=== PATIENT | female | born 1990 | race Caucasian/White ===

== ENCOUNTER 2016-10-25 10:41 | Inpatient (IN) | payer MEDICAID ==
[~2016-10-25] VITALS: Ht 165.1 cm; Wt 129.5 kg
[~2016-10-25 10:41] MED LIST: BUSPAR5 MG PO; CEFTIN500 MG PO; EFFEXOR 75M75 MG/TAB PO; FLEXERIL 1010 MG/TAB PO; FLEXERIL10 MG PO; IBREN600 MG PO; KLONOPIN 1MG1 MG PO; MIRENA52 MG IU; MOTRIN 400400 MG/TAB PO; MULTIPLE VITAMI1 CAP PO; NEXIUM 20MG CAP20 MG PO; NO HOME MEDICATIONS; NORCO 325 MG-51 TAB PO; PHENERGAN 25 TA25 MG PO; PREDNISONE 5MG5 MG PO; PREDNISONE20 MG PO; PRISTIQ50 MG PO; PROAIR HFA0.09 MG/AC; PROVENTIL0.09 MG/A1 IH; ROSERUM; SEROQUEL50 MG PO; TUSS PO; VIIBRYD40 MG PO; XANAX1 MG PO; ZITHROMAX 250M250 MG; ZITHROMAX Z PA250 MG PO; ZYRTEC-D 5 MG-11 TER PO
[2016-10-28] MEDS ORDERED: PRENATAL1 TA7 PO (17:26)
[2016-10-28] MEDS ORDERED: TUMS500 MG (17:26)
[2016-11-26] VITALS (34 sets, daily range): BP systolic 94–160; BP diastolic 16–103; PULSE 77–127; TEMP 97.9–98.9
[2016-11-26] MEDS ORDERED: TYLENOL PM EXTR1 TA1 PO (07:52)
[2016-11-26 08:07] LABS: BASO % 0.3 % (0.0-2.0); EOS # 0.1 (0.0-0.7); EOS % 0.4 % (0-4.0); GRAN # 8.1 (1.4-6.5); GRAN % 71.7 % (42.2-75.2); LYMPH # 2.6 (1.2-3.4); LYMPH % 22.5 % (20.0-51.0); MEAN CELL VOLUME 86 fl (80.0-100.0); MEAN CORPUSCULAR HGB CONC 32 g/dl (33.0-37.0); MEAN PLATELET VOLUME 9.4 fl (7.4-10.4); MONO # 0.5 (0.1-0.6); MONO % 4.7 % (1.7-9.3); PLATELET COUNT 281 K/mm3 (130-400); RED BLOOD COUNT 3.79 M/mm3 (4.10-5.30); REDCELL DISTRIBUTION WIDTH-CV 16.5 % (11.5-14.5); WHITE BLOOD COUNT 11.3 K/mm3 (4.8-10.8)
[2016-11-26 08:11] LABS: HEMATOCRIT 32.7 % (37.0-47.0); HEMOGLOBIN 10.6 g/dl (12.5-16.0); MEAN CORPUSCULAR HEMOGLOBIN 28 pg (27.0-31.0)
[2016-11-26] MEDS ORDERED: PERCOCET 325 MG1 TA2 PO (10:41)
[2016-11-26] MEDS ORDERED: MOTRIN 800800 MG/TAB PO (10:41)
[2016-11-27 03:30] VITALS: BP 130/89; PULSE 96; TEMP 97.8
[2016-11-27 07:15] VITALS: BP 107/52; PULSE 95; TEMP 98.2
[2016-11-27 15:26] VITALS: BP 138/82; PULSE 102; TEMP 98
[2016-11-27 20:30] VITALS: BP 135/75; PULSE 99; TEMP 98.4
[2016-11-28 08:07] VITALS: BP 131/69; PULSE 102; TEMP 97.5
[2016-11-28] MEDS ORDERED: PERCOCET 325 MG1 TA2 PO (08:33)
[2016-11-28] MEDS ORDERED: IBU800 M1 PO (08:33)
[2016-11-28 16:20] VITALS: BP 130/67; PULSE 95; TEMP 98.3
[2017-05-01] MEDS ORDERED: OMEGA-3 FISH1000 MG PO (09:20)
[2017-06-25] MEDS ORDERED: THE MEDICINE S200 M2 PO (13:52)
== END 2016-11-28 19:50 | disposition home or self-care (01) | DRG 775 ==
LOC: LDRO → LDR 11-26 06:25 → OB 11-26 07:13 → LDR 11-26 07:13 → OB 11-26 18:00 → EDSTATUS 11-28 06:23 → LDRO 11-28 10:40 → OB 11-28 19:50
PROVIDERS: Obstetrics & Gynecology
PROC: 10E0XZZ Delivery of Products of Conception, External Approach (ICD-10-PCS; principal; 2016-11-26)
PROC: 3E033VJ Introduction of Other Hormone into Peripheral Vein, Percutaneous Approach (ICD-10-PCS; 2016-11-26)
DX: O75.89 Other specified complications of labor and delivery (principal); O99.334 Smoking (tobacco) complicating childbirth; F17.210 Nicotine dependence, cigarettes, uncomplicated; Z3A.39 39 weeks gestation of pregnancy; Z37.0 Single live birth
CPT/HCPCS: J2590; J2795; J7120

== ENCOUNTER 2016-10-28 16:08 | Outpatient (CLI) | payer MEDICAID ==
[~2016-10-28] VITALS: Ht 165.1 cm; Wt 128.6 kg
[2016-10-28 16:24] VITALS: BP 134/63; PULSE 114; TEMP 98.1
[2016-10-28 17:00] VITALS: BP 114/60; PULSE 94
[2016-10-28] MEDS ORDERED: PRENATAL1 TA7 PO (17:26)
[2016-10-28] MEDS ORDERED: TUMS500 MG (17:26)
[2016-10-28 17:30] VITALS: BP 92/50; PULSE 104
[2016-10-28 18:00] VITALS: BP 92/50; PULSE 104
[2016-10-28 18:50] VITALS: BP 109/59; PULSE 93
[2017-05-01] MEDS ORDERED: OMEGA-3 FISH1000 MG PO (09:20)
[2017-06-25] MEDS ORDERED: THE MEDICINE S200 M2 PO (13:52)
== END 2016-10-28 19:17 | disposition home or self-care (01) ==
LOC: LDRO 16:08
DX: O26.893 Other specified pregnancy related conditions, third trimester (principal); R19.7 Diarrhea, unspecified; O21.0 Mild hyperemesis gravidarum; Z3A.35 35 weeks gestation of pregnancy; Z87.891 Personal history of nicotine dependence
CPT/HCPCS: J2405; J7120

== ENCOUNTER → 2016-12-06 | Outpatient (CLI) | payer MEDICAID ==
[~2016-12-06] MED LIST changes: +IBU800 M1 PO; +MOTRIN 800800 MG/TAB PO; +OMEGA-3 FISH1000 MG PO; +PERCOCET 325 MG1 TA2 PO; +PRENATAL1 TA7 PO; +THE MEDICINE S200 M2 PO; +TUMS500 MG; +TYLENOL PM EXTR1 TA1 PO
== END ==
LOC: LAC 13:24
DX: Z39.1 Encounter for care and examination of lactating mother (principal); Z71.89 Other specified counseling

== ENCOUNTER → 2016-12-13 | Outpatient (CLI) | payer MEDICAID | LOC: LAC 13:28 | DX: Z39.1 Encounter for care and examination of lactating mother (principal); Z71.89 Other specified counseling ==

== ENCOUNTER → 2017-05-01 | Outpatient (CLI) | payer MEDICAID ==
[~2017-05-01] VITALS: Ht 162.6 cm; Wt 125.2 kg
[2017-05-01 09:21] VITALS: BP 123/56; PULSE 96
== END ==
LOC: LIGHT 03-20 07:54
DX: M54.5 Low back pain (principal); F33.9 Major depressive disorder, recurrent, unspecified; K21.9 Gastro-esophageal reflux disease without esophagitis; E66.01 Morbid (severe) obesity due to excess calories; Z68.42 Body mass index [BMI] 45.0-49.9, adult; Z71.3 Dietary counseling and surveillance

== ENCOUNTER → 2017-05-21 | Outpatient (CLI) | payer MEDICAID ==
[~2017-05-21] VITALS: Ht 162.6 cm; Wt 128.8 kg
[2017-05-21 14:42] VITALS: BP 100/72; PULSE 80
== END ==
LOC: LIGHT 05-13 15:04
DX: M54.5 Low back pain (principal); F33.9 Major depressive disorder, recurrent, unspecified; K21.9 Gastro-esophageal reflux disease without esophagitis; E66.01 Morbid (severe) obesity due to excess calories; Z68.42 Body mass index [BMI] 45.0-49.9, adult; Z71.3 Dietary counseling and surveillance

== ENCOUNTER 2017-05-28 14:00 | Outpatient (RCR) | payer MEDICAID ==
[~2017-05-28 14:00] MED LIST changes: -THE MEDICINE S200 M2 PO
[2017-06-25] MEDS ORDERED: THE MEDICINE S200 M2 PO (13:52)
== END 2017-06-21 16:42 ==
LOC: WSPT 14:00
DX: M54.42 Lumbago with sciatica, left side (principal)

== ENCOUNTER → 2017-06-25 | Outpatient (CLI) | payer MEDICAID ==
[~2017-06-25] VITALS: Ht 162.6 cm; Wt 127.7 kg
[~2017-06-25] MED LIST changes: +GLUCOPHAGE500 MG/TAB PO; +PERCOCET 325 MG1 TAB PO; +THE MEDICINE S200 M2 PO
[2017-06-25 13:52] VITALS: BP 120/80; PULSE 88
== END ==
LOC: LIGHT 06-04 12:44
DX: M54.5 Low back pain (principal); F33.9 Major depressive disorder, recurrent, unspecified; K21.9 Gastro-esophageal reflux disease without esophagitis; E66.01 Morbid (severe) obesity due to excess calories; Z68.42 Body mass index [BMI] 45.0-49.9, adult; Z71.3 Dietary counseling and surveillance

== ENCOUNTER → 2017-07-16 | Outpatient (CLI) | payer MEDICAID ==
[~2017-07-16] VITALS: Ht 162.6 cm; Wt 130.0 kg
[2017-07-16 13:32] VITALS: BP 116/74; PULSE 64
== END ==
LOC: LIGHT 07-09 09:27
DX: M54.5 Low back pain (principal); F33.9 Major depressive disorder, recurrent, unspecified; K21.9 Gastro-esophageal reflux disease without esophagitis; E66.01 Morbid (severe) obesity due to excess calories; Z68.42 Body mass index [BMI] 45.0-49.9, adult; Z71.3 Dietary counseling and surveillance

== ENCOUNTER → 2017-08-20 | Outpatient (CLI) | payer MEDICAID ==
[~2017-08-20] VITALS: Ht 162.6 cm; Wt 128.8 kg
[~2017-08-20] MED LIST changes: +ADIPEX-P37.5 MG PO
[2017-08-20 13:19] VITALS: BP 112/80; PULSE 80
== END ==
LOC: LIGHT 10:10
DX: M54.5 Low back pain (principal); F33.9 Major depressive disorder, recurrent, unspecified; K21.9 Gastro-esophageal reflux disease without esophagitis; E66.01 Morbid (severe) obesity due to excess calories; Z68.42 Body mass index [BMI] 45.0-49.9, adult; Z71.3 Dietary counseling and surveillance

== ENCOUNTER → 2017-09-24 | Outpatient (CLI) | payer MEDICAID ==
[~2017-09-24] VITALS: Ht 162.6 cm; Wt 126.3 kg
[~2017-09-24] MED LIST changes: -ADIPEX-P37.5 MG PO; +PHENTERMINE15 MG PO
[2017-09-24 13:20] VITALS: BP 100/72; PULSE 80
== END ==
LOC: LIGHT 10:24
DX: M54.5 Low back pain (principal); F33.9 Major depressive disorder, recurrent, unspecified; K21.9 Gastro-esophageal reflux disease without esophagitis; E66.01 Morbid (severe) obesity due to excess calories; Z68.42 Body mass index [BMI] 45.0-49.9, adult; Z71.3 Dietary counseling and surveillance

== ENCOUNTER → 2017-10-22 | Outpatient (CLI) | payer MEDICAID ==
[~2017-10-22] VITALS: Ht 162.6 cm; Wt 124.7 kg
[2017-10-22 15:05] VITALS: BP 120/78; PULSE 96
== END ==
LOC: LIGHT 14:36
DX: M54.5 Low back pain (principal); F33.9 Major depressive disorder, recurrent, unspecified; K21.9 Gastro-esophageal reflux disease without esophagitis; E66.01 Morbid (severe) obesity due to excess calories; Z68.42 Body mass index [BMI] 45.0-49.9, adult; Z71.3 Dietary counseling and surveillance

== ENCOUNTER → 2017-11-04 | Outpatient (CLI) | payer MEDICAID ==
[~2017-11-04] VITALS: Ht 162.6 cm; Wt 124.7 kg
== END ==
LOC: LIGHT 09:41
DX: M54.5 Low back pain (principal); F33.9 Major depressive disorder, recurrent, unspecified; K21.9 Gastro-esophageal reflux disease without esophagitis; E66.01 Morbid (severe) obesity due to excess calories; Z68.42 Body mass index [BMI] 45.0-49.9, adult; Z71.3 Dietary counseling and surveillance
CPT/HCPCS: G0463

== ENCOUNTER → 2017-11-19 | Outpatient (CLI) | payer MEDICAID ==
[~2017-11-19] VITALS: Ht 162.6 cm; Wt 123.4 kg
[2017-11-19 16:23] VITALS: BP 110/80; PULSE 96
== END ==
LOC: LIGHT 10:22
DX: M54.5 Low back pain (principal); F33.9 Major depressive disorder, recurrent, unspecified; K21.9 Gastro-esophageal reflux disease without esophagitis; E66.01 Morbid (severe) obesity due to excess calories; Z68.42 Body mass index [BMI] 45.0-49.9, adult; Z71.3 Dietary counseling and surveillance
CPT/HCPCS: G0463

== ENCOUNTER → 2017-12-17 | Outpatient (CLI) | payer MEDICAID ==
[~2017-12-17] VITALS: Ht 162.6 cm; Wt 124.7 kg
[~2017-12-17] MED LIST changes: +ADIPEX-P37.5 MG PO; -PHENTERMINE15 MG PO
[2017-12-17 14:34] VITALS: BP 106/80; PULSE 64
== END ==
LOC: LIGHT 13:53
DX: M54.5 Low back pain (principal); F33.9 Major depressive disorder, recurrent, unspecified; K21.9 Gastro-esophageal reflux disease without esophagitis; E66.01 Morbid (severe) obesity due to excess calories; Z68.42 Body mass index [BMI] 45.0-49.9, adult; Z71.3 Dietary counseling and surveillance
CPT/HCPCS: G0463

== ENCOUNTER → 2018-01-14 | Outpatient (CLI) | payer MEDICAID ==
[~2018-01-14] VITALS: Ht 162.6 cm; Wt 123.2 kg
[~2018-01-14] MED LIST changes: +VITAMIN D 400400 IU PO
[2018-01-14 13:54] VITALS: BP 120/50; PULSE 80
== END ==
LOC: LIGHT 09:38
DX: M54.5 Low back pain (principal); F33.9 Major depressive disorder, recurrent, unspecified; K21.9 Gastro-esophageal reflux disease without esophagitis; E66.01 Morbid (severe) obesity due to excess calories; Z68.42 Body mass index [BMI] 45.0-49.9, adult; Z71.3 Dietary counseling and surveillance

== ENCOUNTER → 2018-02-11 | Outpatient (CLI) | payer MEDICAID ==
[~2018-02-11] VITALS: Ht 162.6 cm; Wt 121.3 kg
[2018-02-11 16:54] VITALS: BP 110/60; PULSE 60
== END ==
LOC: LIGHT 09:03
DX: M54.5 Low back pain (principal); F33.9 Major depressive disorder, recurrent, unspecified; K21.9 Gastro-esophageal reflux disease without esophagitis; E66.01 Morbid (severe) obesity due to excess calories; Z68.42 Body mass index [BMI] 45.0-49.9, adult; Z71.3 Dietary counseling and surveillance
CPT/HCPCS: G0463

== ENCOUNTER → 2018-03-18 | Outpatient (CLI) | payer MEDICAID ==
[~2018-03-18] VITALS: Ht 162.6 cm; Wt 122.2 kg
[2018-03-18 15:23] VITALS: BP 140/96; PULSE 80
== END ==
LOC: LIGHT 14:49
DX: M54.5 Low back pain (principal); F33.9 Major depressive disorder, recurrent, unspecified; K21.9 Gastro-esophageal reflux disease without esophagitis; E66.01 Morbid (severe) obesity due to excess calories; Z68.42 Body mass index [BMI] 45.0-49.9, adult; Z71.3 Dietary counseling and surveillance
CPT/HCPCS: G0463

== ENCOUNTER → 2018-03-25 | Outpatient (CLI) | payer MEDICAID | LOC: MHCPAIN 14:41 | DX: G89.29 Other chronic pain (principal); F11.20 Opioid dependence, uncomplicated; M54.9 Dorsalgia, unspecified | CPT/HCPCS: G0463 ==

== ENCOUNTER 2018-04-24 14:40 | Emergency (ER) | payer MEDICAID ==
[~2018-04-24] VITALS: Ht 165.1 cm; Wt 120.5 kg
[2018-04-24 14:41] VITALS: TEMP 98.3
[2018-04-24] MEDS ORDERED: DHEA 10 MG TAB1 EACH PO (14:54)
[2018-04-24 15:25] LABS: COLLECTION METHOD CLEAN CATCH
[2018-04-24 15:38] LABS: BASO % 0.3 % (0.0-2.0); EOS # 0.2 (0.0-0.7); EOS % 2.5 % (0-4.0); GRAN # 6.5 (1.4-6.5); GRAN % 66.8 % (42.2-75.2); HEMATOCRIT 41.1 % (37.0-47.0); HEMOGLOBIN 13.4 g/dl (12.5-16.0); LYMPH # 2.5 (1.2-3.4); LYMPH % 25.1 % (20.0-51.0); MEAN CELL VOLUME 92 fl (80.0-100.0); MEAN CORPUSCULAR HEMOGLOBIN 30 pg (27.0-31.0); MEAN CORPUSCULAR HGB CONC 33 g/dl (33.0-37.0); MONO # 0.5 (0.1-0.6); PLATELET COUNT 342 K/mm3 (130-400); RED BLOOD COUNT 4.47 M/mm3 (4.10-5.30); REDCELL DISTRIBUTION WIDTH-CV 13.5 % (11.5-14.5)
[2018-04-24 15:40] LABS: CALCIUM 9.9 mg/dL (8.4-10.2); CREATININE, serum 0.83 mg/dL (0.52-1.25); POTASSIUM 3.7 mmol/L (3.4-5.0)
[2018-04-24 16:06] LABS: MUCOUS Present /lpf; PH 5 (5-8); URINE APPEARANCE Cloudy; URINE BACTERIA Rare /hpf; URINE BILIRUBIN Negative (NEGATIVE); URINE BLOOD Negative (NEGATIVE); URINE COLOR Yellow; URINE GLUCOSE Negative (NEGATIVE); URINE KETONE Negative (NEGATIVE); URINE LEUKOCYTE ESTERASE 2+ (NEGATIVE); URINE NITRATE Negative (NEGATIVE); URINE PROTEIN(semi-quant) 1+ (NEGATIVE); URINE UROBILINOGEN Negative (NEGATIVE)
[2018-04-24] MEDS ORDERED: MACROBID 1100 MG/CAP PO (16:19)
[2018-04-24 16:38] VITALS: BP 132/82; PULSE 100
== END 2018-04-24 16:39 | disposition home or self-care (01) ==
LOC: COL.ER 14:40
PROVIDERS: Physician Assistant
DX: O23.41 Unspecified infection of urinary tract in pregnancy, first trimester (principal); Z79.84 Long term (current) use of oral hypoglycemic drugs; Z3A.00 Weeks of gestation of pregnancy not specified

== ENCOUNTER 2018-12-31 08:20 | Outpatient (CLI) | payer MEDICAID ==
[~2018-12-31] VITALS: Ht 165.1 cm; Wt 140.0 kg
[~2018-12-31 08:20] MED LIST changes: +DHEA 10 MG TAB1 EACH PO; +MACROBID 1100 MG/CAP PO
--- NOTE | 2018-12-31 08:30 | NUR ---
Pt arrives on unit ambulatory with FOB. States contractions that started at 0300 occuring every 10-15 minutes lasting 40-60 seconds. Denies LOF, vaginal bleeding and reports GFM. Changed into clean gown. EFM and toco applied. VSS. SVE per this RN /-2. Admission assessment completed. Call light within reach. Bed locked in low position. Pt updated on POC. Saftey reviewed. No questions or concerns at this time.
[2018-12-31] MEDS ORDERED: PROFERRIN ES12 MG PO (08:44)
[2018-12-31] MEDS ORDERED: B-12 100 MCG (08:44)
[2018-12-31 09:30] VITALS: BP 149/76; PULSE 102
--- NOTE | 2018-12-31 09:49 | NUR ---
SVE per this RN 4-5/80/-2. Will continue to monitor x1 hour and recheck SVE. FHR reative. Pt taken off monitors and on to birthing ball.
[2018-12-31 10:47] VITALS: BP 134/82; PULSE 103
--- NOTE | 2018-12-31 10:50 | NUR ---
SVE per this RN unchanged. Pt taken off monitors. Discharge instructions given. No questions or concerns at this time. Pt leaves unit ambulatory.
[2019-01-01] MEDS ORDERED: NATURAL IRON65 MG (07:28)
[2019-01-01] MEDS ORDERED: MOTRIN 800800 MG/TAB PO (15:44)
[2019-01-01] MEDS ORDERED: PERCOCET 325 MG1 TA2 PO (15:44)
== END 2018-12-31 10:50 | disposition home or self-care (01) ==
LOC: LDRO 08:20 → LDR 08:30 → LDRO 10:50
DX: O62.9 Abnormality of forces of labor, unspecified (principal); Z3A.40 40 weeks gestation of pregnancy
CPT/HCPCS: OP

== ENCOUNTER 2019-01-01 07:04 | Inpatient (IN) | payer MEDICAID ==
[~2019-01-01] VITALS: Ht 165.1 cm; Wt 141.8 kg
[2019-01-01] VITALS (32 sets, daily range): BP systolic 102–169; BP diastolic 50–95; PULSE 90–129; TEMP 98.1–99.6
[~2019-01-01 07:04] MED LIST changes: +B-12 100 MCG; +PROFERRIN ES12 MG PO
[2019-01-01] MEDS ORDERED: NATURAL IRON65 MG (07:28)
--- NOTE | 2019-01-01 07:30 | NUR ---
G3L2 at 40.3 weeks gestation to LDR5 with spouse for induction of labor. Patient changed into gown and wedged left in bed. EFMs explained and applied. FHR 130s and reactive. Irregular CTX per toco and patient reports. VSS. Assessment completed and consents signed. Plan of care reviewed.
--- NOTE | 2019-01-01 08:00 | NUR ---
Pitocin started at 2mu per orders and protocol.
--- NOTE | 2019-01-01 08:08 | NUR ---
Dr. Polk to room. Reviews FHR strip. SVE with AROM - 5/80/-3 with clear fluid noted.
[2019-01-01 08:40] LABS: BASO % 0.2 % (0.0-2.0); EOS # 0.1 (0.0-0.7); EOS % 1.2 % (0-4.0); GRAN # 7.5 (1.4-6.5); GRAN % 74.3 % (42.2-75.2); HEMATOCRIT 34.6 % (37.0-47.0); HEMOGLOBIN 11.3 g/dl (12.5-16.0); LYMPH # 1.8 (1.2-3.4); LYMPH % 18.2 % (20.0-51.0); MEAN CELL VOLUME 92 fl (80.0-100.0); MEAN CORPUSCULAR HEMOGLOBIN 30 pg (27.0-31.0); MEAN CORPUSCULAR HGB CONC 33 g/dl (33.0-37.0); MEAN PLATELET VOLUME 9.9 fl (7.4-10.4); MONO # 0.5 (0.1-0.6); MONO % 5.1 % (1.7-9.3); PLATELET COUNT 217 K/mm3 (130-400); RED BLOOD COUNT 3.76 M/mm3 (4.10-5.30); REDCELL DISTRIBUTION WIDTH-CV 16.9 % (11.5-14.5)
--- NOTE | 2019-01-01 08:45 | NUR ---
Patient breathing through contractions, request epidural. IVF bolus started and EMPLOYMENT SUPERVISOR notified.
--- NOTE | 2019-01-01 09:36 | NUR ---
0910 RULA Fernando to room to place epidural. Patient sits upright on the side of the bed. FHR difficult to monitor in this position, EFM intermittently traces maternal HR as it coorelates with spO2 tracing. 0936 Test dose administered by RULA Feranndo. See anesthesia record for details of placement. 0950 Patient wedged to left side.
--- NOTE | 2019-01-01 11:30 | NUR ---
Patient reports feeling better after zofran given. no further complaints of nausea.
--- NOTE | 2019-01-01 13:20 | NUR ---
Patient c/o feeling the urge to push. SVE 06-23/+1. Dr. Polk updated and on her way to the hospital.
--- NOTE | 2019-01-01 13:42 | NUR ---
1335 Dr. Polk to room. SVE - complete. Patient prepped for delivery and instructed to push with contractions. 1342 Spontaneous vaginal delivery of viable female infant by Dr. Polk. Cord clamped and cut and to the care of the nursery RN. 1344 Spontaneous delivery of placenta by Dr. Polk. Pitocin infusing at 333ml/hr per orders and protocol. Fundus firm, lochia WNL. Perineum intact.
[2019-01-01] MEDS ORDERED: PERCOCET 325 MG1 TA2 PO (15:44)
[2019-01-01] MEDS ORDERED: MOTRIN 800800 MG/TAB PO (15:44)
--- NOTE | 2019-01-01 22:00 | NUR ---
Patient states she passed a "huge" clot during her last void and thinks it was around the size of her fist. Fundus firm and at the umbilicus. Will continue to monitor bleeding.
[2019-01-02] VITALS: BP 147/86; PULSE 88; TEMP 98.4
[2019-01-02 04:00] VITALS: BP 135/75; PULSE 94; TEMP 98.2
--- NOTE | 2019-01-02 04:00 | NUR ---
Increased bleeding noted on chux pad. Patient describes bleeding as alittle heavier than a period but thinks it is starting to lighten up. Fundal massaged completeded. Fundus firm and at the umbilicus. Educated patient on bleeding to watching for and signs of increased bleeding and clotting. Will continue to monitor.
[2019-01-02 07:05] VITALS: BP 137/76; PULSE 97; TEMP 97.3
--- NOTE | 2019-01-02 09:43 | NUR ---
Initial visit; Patient thanked Line Service Supervisor for offering congratulations and God's blessings for the of her daughter. Line Service Supervisor thanked family for choosing [facility].
[2019-01-02 14:00] VITALS: BP 147/83; PULSE 88; TEMP 97.9
[2019-01-02 16:30] VITALS: BP 145/87; PULSE 93; TEMP 98
[2019-01-03 09:30] VITALS: BP 143/88; PULSE 100; TEMP 98.1
== END 2019-01-03 16:00 | disposition home or self-care (01) | DRG 807 ==
LOC: OB 07:04 → LDR 07:04 → OB 16:20
PROVIDERS: ADMIT Obstetrics & Gynecology
PROC: 10E0XZZ Delivery of Products of Conception, External Approach (ICD-10-PCS; principal; 2019-01-01)
PROC: 10907ZC Drainage of Amniotic Fluid, Therapeutic from Products of Conception, Via Natural or Artificial Opening (ICD-10-PCS; 2019-01-01)
PROC: 3E033VJ Introduction of Other Hormone into Peripheral Vein, Percutaneous Approach (ICD-10-PCS; 2019-01-01)
DX: O99.214 Obesity complicating childbirth (principal); Z37.0 Single live birth; Z3A.40 40 weeks gestation of pregnancy; O99.344 Other mental disorders complicating childbirth; F41.8 Other specified anxiety disorders; Z88.0 Allergy status to penicillin; M54.32 Sciatica, left side; M54.31 Sciatica, right side
CPT/HCPCS: J2405; J2590; J7120

== ENCOUNTER → 2019-02-24 | Outpatient (CLI) | payer MEDICAID ==
[~2019-02-24] VITALS: Ht 165.2 cm; Wt 130.9 kg
[~2019-02-24] MED LIST changes: +NATURAL IRON65 MG
[2019-02-24 15:07] VITALS: BP 114/80; PULSE 80
== END ==
LOC: LIGHT 09:42
DX: M54.5 Low back pain (principal); F32.9 Major depressive disorder, single episode, unspecified; K21.9 Gastro-esophageal reflux disease without esophagitis; E66.01 Morbid (severe) obesity due to excess calories; Z68.42 Body mass index [BMI] 45.0-49.9, adult; Z71.3 Dietary counseling and surveillance
CPT/HCPCS: G0463

== ENCOUNTER → 2019-03-24 | Outpatient (CLI) | payer MEDICAID ==
[~2019-03-24] VITALS: Ht 165.1 cm; Wt 132.2 kg
[2019-03-24 14:03] VITALS: BP 110/76; PULSE 96
== END ==
LOC: LIGHT 11:37
DX: M54.5 Low back pain (principal); F32.9 Major depressive disorder, single episode, unspecified; K21.9 Gastro-esophageal reflux disease without esophagitis; E66.01 Morbid (severe) obesity due to excess calories; Z68.42 Body mass index [BMI] 45.0-49.9, adult; Z71.3 Dietary counseling and surveillance
CPT/HCPCS: G0463

== ENCOUNTER → 2019-04-28 | Outpatient (CLI) | payer MEDICAID ==
[~2019-04-28] VITALS: Ht 165.1 cm; Wt 133.6 kg
[2019-04-28 13:46] VITALS: BP 104/64; PULSE 84
== END ==
LOC: LIGHT 04-21 15:53
DX: M54.5 Low back pain (principal); F32.9 Major depressive disorder, single episode, unspecified; K21.9 Gastro-esophageal reflux disease without esophagitis; E66.01 Morbid (severe) obesity due to excess calories; Z68.42 Body mass index [BMI] 45.0-49.9, adult; Z71.3 Dietary counseling and surveillance
CPT/HCPCS: G0463

== ENCOUNTER → 2019-07-14 | Outpatient (CLI) | payer MEDICAID ==
[~2019-07-14] VITALS: Ht 165.1 cm; Wt 133.6 kg
[~2019-07-14] MED LIST changes: +tumeric PO
[2019-07-14 13:27] VITALS: BP 116/72; PULSE 80
== END ==
LOC: LIGHT 05-26 15:24
DX: M54.5 Low back pain (principal); F32.9 Major depressive disorder, single episode, unspecified; K21.9 Gastro-esophageal reflux disease without esophagitis; E66.01 Morbid (severe) obesity due to excess calories; Z68.42 Body mass index [BMI] 45.0-49.9, adult; Z71.3 Dietary counseling and surveillance
CPT/HCPCS: G0463